=== PATIENT | female | born 1945 | race Caucasian/White ===

== ENCOUNTER → 2021-02-17 11:50 | Outpatient (BNVA) | payer MEDICARE, MEDICAID, SELFPAY | PROVIDERS: PCP Family Medicine; Visit Provider Nurse Practitioner Family | DX: J40 Bronchitis, not specified as acute or chronic (principal); R06.02 Shortness of breath; R91.1 Solitary pulmonary nodule; R05.9 Cough, unspecified | CPT/HCPCS: 71046 ==

== ENCOUNTER 2021-04-19 15:46 | Outpatient (CLI) | payer MEDICARE, MEDICAID, SELFPAY ==
--- NOTE | 2021-04-19 16:00 | CTR_ITS ---
PROCEDURE INFORMATION: Exam: CT Chest With Contrast; Diagnostic Exam date and time: 04/19/2021 4:00 PM Age: 76 years old Clinical indication: Abnormal findings; Abnormal radiologic exam of lung or chest; Additional info: Abnormal chest xray TECHNIQUE: Imaging protocol: Diagnostic computed tomography of the chest with contrast. Radiation optimization: All CT scans at this facility use at least one of these dose optimization techniques: automated exposure control; mA and/or kV adjustment per patient size (includes targeted exams where dose is matched to clinical indication); or iterative reconstruction. Contrast material: VISI 320; Contrast volume: 95 ml; Contrast route: INTRAVENOUS (IV); COMPARISON: No relevant prior studies available. RADIATION DOSE METRICS: Total DLP (mGy-cm): 732.22 FINDINGS: Lungs: In the right lung apex there is an indistinct hazy opacity, most likely incidental. No mass or significant pneumonia. Pleural spaces: Unremarkable. No pneumothorax. No pleural effusion. Heart: There is a small pericardial effusion. Aorta: Unremarkable. No aortic aneurysm. Lymph nodes: Incidental calcified hilar and mediastinal lymph nodes. Liver: The visualized portions of the liver and spleen are unremarkable. Gallbladder and bile ducts: The gallbladder is filled with multiple nonobstructing stones. Bones/joints: Unremarkable. No acute fracture. Soft tissues: Unremarkable. Other findings: There are scattered incidental calcified granulomas. CT/CT chest w con* [id number] IMPRESSION: 1. No significant chest findings. 2. Small pericardial effusion. 3. Multiple nonobstructing gallstones.
[2021-04-19 17:06] LABS: Blood Urea Nitrogen 15 mg/dL (8-23)
[2021-04-19] MEDS: iodixanol 320 mg/mL 100mL Btl IV (17:31)
== END 2021-04-19 15:47 | disposition home or self-care (01) ==
PROVIDERS: PCP Family Medicine; Visit Provider Nurse Practitioner Family
DX: R91.1 Solitary pulmonary nodule (principal); R05.9 Cough, unspecified; R06.02 Shortness of breath; I31.3 Pericardial effusion (noninflammatory)
CPT/HCPCS: 71260; 82565; 84520

== ENCOUNTER → 2021-07-27 14:50 | Outpatient (BNVA) | payer MEDICARE, MEDICAID, SELFPAY | PROVIDERS: PCP Family Medicine; Visit Provider Nurse Practitioner Family | DX: R05.9 Cough, unspecified (principal); R06.00 Dyspnea, unspecified; R06.02 Shortness of breath; R91.1 Solitary pulmonary nodule | CPT/HCPCS: 71046; 80053; 85025 ==

== ENCOUNTER → 2021-09-01 12:38 | Outpatient (BNVA) | payer MEDICARE, MEDICAID, SELFPAY | PROVIDERS: PCP Family Medicine; Visit Provider Internal Medicine Pulmonary Disease | DX: R06.00 Dyspnea, unspecified (principal); J40 Bronchitis, not specified as acute or chronic; R05.9 Cough, unspecified; R06.02 Shortness of breath; R91.1 Solitary pulmonary nodule; Z87.891 Personal history of nicotine dependence | CPT/HCPCS: 80053; 82785; 83880; 85025; 86003; 99204 ==

== ENCOUNTER 2021-10-28 10:17 | Outpatient (CLI) | payer MEDICARE, MEDICAID, SELFPAY ==
--- NOTE | 2021-10-28 14:19 | PFTS_ITS ---
Date of Study:10/28/21 Date of Dictation: MECHANICS: Forced vital capacity (FVC) is normal. Forced expiratory volume in one second (FEV1) is normal. FEV1/FVC is reduced. FLOW VOLUME LOOP: Reduced flow at all lung volumes with significant scooping. LUNG VOLUMES: Total lung capacity (TLC) is normal. Residual volume (RV) is increased. DIFFUSING CAPACITY FOR CARBON MONOXIDE: Normal. INTERPRETATION: The postbronchodilator spirometry is consistent with mild obstruction. There is no significant postbronchodilator response. Lung volumes are consistent with mild air trapping. Gas exchange (DLCO) is normal. MTDD
== END 2021-10-28 10:18 | disposition home or self-care (01) ==
LOC: RT 10:17
PROVIDERS: PCP Family Medicine; Visit Provider Internal Medicine Pulmonary Disease
DX: R91.1 Solitary pulmonary nodule (principal); R06.00 Dyspnea, unspecified
CPT/HCPCS: 94060; 94618; 94726; 94729; J7611

== ENCOUNTER 2022-04-18 13:15 | Outpatient (CLI) | payer MEDICARE, MEDICAID, SELFPAY ==
--- NOTE | 2022-04-18 14:00 | CT_ITS ---
WS: [id number] CT CHEST TECHNIQUE: Noncontrast CT of the chest with coronal and sagittal reformatted images. CLINICAL INFORMATION: R93.89 - Abnormal findings on diagnostic imaging of other... COMPARISON: CT chest April 19, 2021 DLP: 385.[address] scans at [facility] use at least one of these dose optimization techniques: automated e xposure control; mA and/or kV adjustment per patient size (includes targeted exams where dose is matc hed to clinical indication); or iterative reconstruction. FINDINGS: Mild chronic emphysematous changes. A few calcified granulomas. . Ovoid opacity in the RIGH T upper lobe anteriorly likely corresponds to the chest radiograph findings and is unchanged since est CT April 19, 2021. This measures approximately 14 mm. Recommend continued surveillance. Recomm end 12 month follow-up. Additional stable 4 mm nodule in the lingula. Noncalcified nodule LEFT lower lobe measuring 6 mm posterior medially appears unchanged since April 19, 2021. A few additional tiny subcentimeter nodules in the RIGHT upper lobe. Moderate thoracic kyphosis. Hype rtrophic changes thoracic spine. Tiny pericardial effusion. Normal caliber thoracic aorta. Calcification. No mediastinal or hilar lymp hadenopathy. Calcified hilar nodes. No axillary lymphadenopathy. Normal GE junction. Tiny pericardial effusion. Noncontrast spleen is normal. Adrenal glands are corinne l. CT/CT chest [place] [id number] IMPRESSION: 1. 1.4 cm ovoid opacity in the RIGHT upper lobe anteriorly unchanged since Apr. Recommend continued surveillance with 12 month follow-up. 2. Noncalcified nodule LEFT lower lobe measuring 6 mm is unchanged since 2021. 3. Additional stable 4 mm nodule in the lingula. 4. No mediastinal or hilar lymphadenopathy.
== END 2022-04-18 13:16 | disposition home or self-care (01) ==
PROVIDERS: PCP Family Medicine; Visit Provider Internal Medicine Pulmonary Disease
DX: R93.89 Abnormal findings on diagnostic imaging of other specified body structures (principal); R91.1 Solitary pulmonary nodule
CPT/HCPCS: 71250

== ENCOUNTER → 2022-07-20 13:28 | Outpatient (BNVA) | payer MEDICARE, MEDICAID, SELFPAY | PROVIDERS: PCP Family Medicine; Visit Provider Nurse Practitioner Family | DX: Z13.6 Encounter for screening for cardiovascular disorders (principal); R91.1 Solitary pulmonary nodule | CPT/HCPCS: 80053; 80061 ==

== ENCOUNTER → 2022-10-12 08:44 | Outpatient (BNVA) | payer MEDICARE, MEDICAID, SELFPAY | PROVIDERS: PCP Family Medicine; Visit Provider Nurse Practitioner Family | DX: E78.5 Hyperlipidemia, unspecified (principal) | CPT/HCPCS: 80061 ==

== ENCOUNTER → 2023-01-10 10:49 | Outpatient (BNVA) | payer MEDICARE, MEDICAID, SELFPAY | PROVIDERS: PCP Family Medicine; Visit Provider Nurse Practitioner Family | DX: J44.9 Chronic obstructive pulmonary disease, unspecified (principal); R91.1 Solitary pulmonary nodule; E78.2 Mixed hyperlipidemia | CPT/HCPCS: 80053; 80061 ==

== ENCOUNTER → 2023-03-14 11:17 | Outpatient (BNVA) | payer MEDICARE, MEDICAID, SELFPAY | PROVIDERS: PCP Family Medicine; Visit Provider Nurse Practitioner Family | DX: E78.2 Mixed hyperlipidemia (principal) | CPT/HCPCS: 80053; 80061 ==

== ENCOUNTER → 2023-06-14 10:16 | Outpatient (BNVA) | payer MEDICARE, MEDICAID, SELFPAY | PROVIDERS: PCP Family Medicine; Visit Provider Nurse Practitioner Family | DX: E78.2 Mixed hyperlipidemia (principal); J44.9 Chronic obstructive pulmonary disease, unspecified | CPT/HCPCS: 80053; 80061; 85025 ==

== ENCOUNTER → 2023-09-13 09:19 | Outpatient (BNVA) | payer MEDICARE, MEDICAID, SELFPAY | PROVIDERS: PCP Family Medicine; Visit Provider Nurse Practitioner Family | DX: E78.2 Mixed hyperlipidemia (principal) | CPT/HCPCS: 80053; 80061; 85025 ==

== ENCOUNTER → 2023-12-13 10:51 | Outpatient (BNVA) | payer MEDICARE, MEDICAID, SELFPAY | PROVIDERS: PCP Nurse Practitioner Family; Visit Provider Nurse Practitioner Family | DX: E78.2 Mixed hyperlipidemia (principal); J44.9 Chronic obstructive pulmonary disease, unspecified; K21.9 Gastro-esophageal reflux disease without esophagitis | CPT/HCPCS: 80053; 80061; 84443; 85025 ==

== ENCOUNTER → 2024-01-31 13:15 | Outpatient (BNVA) | payer MEDICARE, MEDICAID, SELFPAY | PROVIDERS: PCP Nurse Practitioner Family; Visit Provider Nurse Practitioner Family | DX: E78.2 Mixed hyperlipidemia (principal); E03.9 Hypothyroidism, unspecified | CPT/HCPCS: 84443 ==

== ENCOUNTER 2024-05-09 15:28 | Outpatient (CLI) | payer MEDICARE, MEDICAID, SELFPAY ==
--- NOTE | 2024-05-09 16:30 | CT_ITS ---
WS: [id number] CT chest wo con [id number] HISTORY: R91.8 - Other nonspecific abnormal finding of lung field TECHNIQUE: Axial imaging performed through the thorax. Coronal and sagittal reformats are submitted. All CT scans at [facility] use at least one of these dose optimization techniques: automated exposure control; mA and/or kV adjustment per patient size (includes targeted exams where dose is matched to clinical indication); or iterative reconstruction. CONTRAST: None DLP: 297.32 mGy.cm COMPARISON: Chest CT 04/18/2022, 04/19/2021 Lungs and central airway: Stable linear 12 mm nodule medial RIGHT upper lobe. Stable 3 mm lingular nodule. Additional tiny micronodules in the periphery LEFT lower lobe. Stable ovoid 6 mm nodule at the medial LEFT lung base. There are a few additional micronodules in calcified nodules. New subsegmental atelectasis in the RIGHT middle lobe. Pleura: Normal. No pleural effusion. Heart and pericardium: Heart is normal size. Small but increasing size of a pericardial effusion now measuring 1.5 cm in diameter. Mediastinum and samy: Calcified RIGHT hilar lymph nodes. No adenopathy. Vessels: Mild atherosclerosis aorta. Normal size aorta. Normal size pulmonary artery. Chest wall and lower neck: No soft tissue masses. Upper abdomen: Small hiatal hernia. No adrenal mass. Cholelithiasis without acute cholecystitis. Osseous structures: Mild increase in thoracic kyphosis. CT/CT chest wo con [id number] IMPRESSION: 1. Stable bilateral pulmonary nodules. No new nodule or enlarging pulmonary no dule. 2. New subsegmental atelectasis in the RIGHT middle lobe. 3. Small but increasing pericardial effusion. 4. Cholelithiasis without acute cholecystitis. Gallbladder is incompletely inc luded but there are stones in the region of the gallbladder fossa.
== END 2024-05-09 15:29 | disposition home or self-care (01) ==
PROVIDERS: PCP Nurse Practitioner Family; Visit Provider Nurse Practitioner Family
DX: R91.8 Other nonspecific abnormal finding of lung field (principal); J98.11 Atelectasis; I31.39 Other pericardial effusion (noninflammatory); K80.20 Calculus of gallbladder without cholecystitis without obstruction; I89.8 Other specified noninfective disorders of lymphatic vessels and lymph nodes; I70.0 Atherosclerosis of aorta; K44.9 Diaphragmatic hernia without obstruction or gangrene; M40.294 Other kyphosis, thoracic region
CPT/HCPCS: 71250

== ENCOUNTER 2024-06-11 11:22 | Outpatient (CLI) | payer MEDICARE, MEDICAID, SELFPAY ==
--- NOTE | 2024-06-11 12:00 | USCV_ITS ---
Vandana Short Age: 79 Gender: F : 1945 Exam Date: 06/11/2024 11:48 Ordering Phys: Olga FlorentinoP-Bernie Technologist: Exam Location: [facility] [place] Indication: high risk meds BP: 120 / 80 HR: 60 Rhythm: Sinus Technical Quality: MEASUREMENTS (Male / Female) Normal Values 2D ECHO LV Diastolic Diameter PLAX 3.2 cm 4.2 - 5.9 / 3.9 - 5.3 cm IVS Diastolic Thickness 1.1 cm 0.6 - 1.0 / 0.6 - 0.9 cm IVS Systolic Thickness 1.1 cm LVPW Diastolic Thickness 1.1 cm 0.6 - 1.0 / 0.6 - 0.9 cm LVPW Systolic Thickness 1.3 cm LVOT Diameter 2.0 cm LV Ejection Fraction 2D Teich 66.1 % LV Ejection Fraction MOD 4C 63.2 % LV Ejection Fraction MOD 2C 73.4 % LV Ejection Fraction 2C AL 73.9 % LA Diameter 2.7 cm RA Systolic Volume 4C AL 29.7 ml RA Systolic Volume 4C MOD 28.4 ml Aorta at Sinotubular Diameter 2.3 cm IVC Diameter 2.0 cm M-MODE LA Ao Ratio MM 1.3 AV Cusp Separation MM 2.0 cm DOPPLER AV Peak Velocity 162.0 cm/s LVOT Peak Velocity 88.0 cm/s AV Area Cont Eq vti 2.5 cm squared AV Area Cont Eq pk 1.7 cm squared MV Peak Velocity 94.0 cm/s MV Area PHT 2.8 cm squared Mitral E to A Ratio 0.8 TV Peak Velocity 236.0 cm/s TR Peak Velocity 238.0 cm/s TR Peak Gradient 22.7 mmHg TV Peak E Velocity 66.0 cm/s PV Peak Velocity 120.0 cm/s FINDINGS Left Ventricle Normal left ventricular size, systolic function and wall thickness, with no regional wall motion abnormalities. Left ventricular ejection fraction is estimated at 60 %. Grade I/IV diastolic dysfunction (abnormal relaxation filling pattern), normal to mildly elevated filling pressures. Right Ventricle The right ventricle is normal in size and function. Right Atrium The right atrium is normal in size. Left Atrium Moderately increased left atrial size. Mitral Valve Mildly thickened mitral valve. No mitral valve stenosis. Mild- moderate mitral valve regurgitation. Aortic Valve Mild aortic valve calcification. No aortic valve stenosis. Trace aortic valve regurgitation. Tricuspid Valve Structurally normal tricuspid valve without significant stenosis or regurgitation. Pulmonary artery systolic pressure is normal. Pulmonic Valve Structurally normal pulmonic valve without significant stenosis. There is no pulmonic regurgitation. Pericardium Normal pericardium without effusion. Aorta Normal ascending aorta dimension. IVC The inferior vena cava appears normal. CONCLUSIONS Normal left ventricular size, systolic function and wall thickness, with no regional wall motion abnormalities. Left ventricular ejection fraction is estimated at 60 %. Grade I/IV diastolic dysfunction (abnormal relaxation filling pattern), normal to mildly elevated filling pressures. Moderately increased left atrial size. Mildly thickened mitral valve. No mitral valve stenosis. Mild- moderate mitral valve regurgitation. Mild aortic valvethere is no pericardial effusion. Right atrial pressure is around 5 mm of mercury. Jyoti Chavarria MD (Electronically Signed) Final Date: 27 June 2024 16:32 S
== END 2024-06-11 11:23 | disposition home or self-care (01) ==
PROVIDERS: PCP Nurse Practitioner Family; Visit Provider Nurse Practitioner Family
DX: I31.39 Other pericardial effusion (noninflammatory) (principal); R93.1 Abnormal findings on diagnostic imaging of heart and coronary circulation; I51.7 Cardiomegaly; I34.0 Nonrheumatic mitral (valve) insufficiency; I35.8 Other nonrheumatic aortic valve disorders
CPT/HCPCS: 93306

== ENCOUNTER → 2024-08-02 08:56 | Outpatient (BNVA) | payer MEDICARE, MEDICAID, SELFPAY | PROVIDERS: PCP Nurse Practitioner Family; Visit Provider Internal Medicine Cardiovascular Disease | DX: R07.9 Chest pain, unspecified (principal) | CPT/HCPCS: 93005; 99204 ==

== ENCOUNTER → 2024-10-23 10:19 | Outpatient (BNVA) | payer MEDICARE, MEDICAID, SELFPAY | PROVIDERS: PCP Nurse Practitioner Family; Visit Provider Nurse Practitioner Family | DX: E78.2 Mixed hyperlipidemia (principal); E03.9 Hypothyroidism, unspecified | CPT/HCPCS: 80053; 80061; 84439; 84443; 84481; 85025 ==

== ENCOUNTER → 2024-12-18 09:03 | Outpatient (BNVA) | payer MEDICARE, MEDICAID, SELFPAY | PROVIDERS: PCP Nurse Practitioner Family; Visit Provider Nurse Practitioner Family | DX: E78.2 Mixed hyperlipidemia (principal); R79.89 Other specified abnormal findings of blood chemistry | CPT/HCPCS: 80053; 84443 ==

== ENCOUNTER → 2025-02-14 08:45 | Outpatient (BNVA) | payer MEDICARE, MEDICAID, SELFPAY | PROVIDERS: PCP Nurse Practitioner Family; Visit Provider Nurse Practitioner Family | DX: I08.0 Rheumatic disorders of both mitral and aortic valves (principal); I51.89 Other ill-defined heart diseases; Z87.891 Personal history of nicotine dependence | CPT/HCPCS: 99214 ==